=== PATIENT | male | born 1945 | race American Indian/Alaskan Native ===

== ENCOUNTER 2017-08-25 07:28 | Outpatient (CLI) | payer MEDICARE ==
[2017-08-25] MEDS ORDERED: LEXISCAN IV ONE ×2 (10:15→10:18)
[2017-08-25 12:34] VITALS: BP 159/70
--- NOTE | 2017-08-26 04:01 | Treadmill Report ---
ORDERING PHYSICIAN: Shauna Kohler MD INDICATION: Chest pain. FINDINGS: There is no scintigraphic evidence of myocardial ischemia. The left ventricle is normal in size and systolic function. The left ventricular ejection fraction is measured at 59%. Normal wall motion and wall thickening is noted on gated imaging. CONCLUSION: Normal perfusion scan. JOB# [id number]
== END 2017-08-25 07:29 | disposition home or self-care (01) ==
LOC: ECHO 07:28
PROVIDERS: ATTEND Internal Medicine Cardiovascular Disease
DX: I08.1 Rheumatic disorders of both mitral and tricuspid valves (principal); I10 Essential (primary) hypertension; R94.31 Abnormal electrocardiogram [ECG] [EKG]; R07.9 Chest pain, unspecified; F17.200 Nicotine dependence, unspecified, uncomplicated
CPT/HCPCS: 78452; 93017; 93306; 93880; A9502; J2785